=== PATIENT | male | born 1965 | race Two or more races ===

== ENCOUNTER 2018-08-02 19:18 | Emergency (ER) | payer MEDICAID, OTHER ==
[~2018-08-02] VITALS: Ht 162.6 cm; Wt 88.5 kg
--- NOTE | 2018-08-02 19:26 | NUR ---
ED Nurse Note: Patient walk in c/o pain and itching in rectum. Patient states he was diagnosed years ago with hemmorhoids, but the pain and itching has returned. Pain is 5/10, pt denies blood in stool.
[2018-08-02 19:31] VITALS: BP 157/91
[2018-08-02] MEDS ORDERED: BENTYL10 MG/1 ML IM (19:31)
[2018-08-02] MEDS ORDERED: BACTRIM DS TAB1 EAC1 ORAL (19:31)
[2018-08-02] MEDS ORDERED: METRONIDAZOLE500 MG ORAL (19:31)
[2018-08-02] MEDS ORDERED: TRIAMCINOLONE A15 G2 TP (19:31)
[2018-08-02] MEDS ORDERED: ANUSOL-HC30 GM RC (20:01)
[2018-08-02] MEDS ORDERED: COLACE100 MG ORAL (20:01)
[2018-08-02] MEDS ORDERED: NAPROXEN500 M2 ORAL (20:01)
[2018-08-02 20:05] VITALS: BP 157/91
--- NOTE | 2018-08-02 20:05 | NUR ---
ER DISCHARGE NOTE: Patient is cleared to be discharged per ERMD, pt is aox4, on room air, with stable vital signs. pt was given dc and prescription instructions, pt was able to verbalize understanding, pt id band removed. pt is able to ambulate with steady gait. pt took all belongings.
--- NOTE | 2018-08-02 21:17 | Emergency Room Report ---
History of Present Illness General Chief Complaint: Pain Source: Patient Present Illness HPI The patient is a 53-year-old male presenting for possible hemorrhoids. He states that he has had hemorrhoids in the past and this feels the same. he is experiencing pain 8 out of 10 sharp sensation which occurs with defecation. He does admit to constipation recently. He denies any other symptoms including melena, hematochezia, abdominal pain, fever, chills Allergies: Coded Allergies: HYDROXYUREA (Verified Allergy, Unknown, 08/02/18) LIDOCAINE (Verified Allergy, Unknown, 08/02/18) Patient History Past Medical History: see triage record Pertinent Family History: none Reviewed Nursing Documentation: PMH: Agreed; PSxH: Agreed Nursing Documentation-PMH Past Medical History: No History, Except For Hx Gastrointestinal Problems: Yes - hemmorhoids Review of Systems All Other Systems: negative except mentioned in HPI Physical Exam Vital Signs Date Time Temp Pulse Resp B/P (MAP) Pulse Ox O2 Delivery O2 Flow Rate FiO2 08/02/18 19:21 98.2 116 16 157/91 95 Sp02 EP Interpretation: reviewed, normal General Appearance: no apparent distress, alert, GCS 15, non-toxic Head: normocephalic, atraumatic Gastrointestinal: normal bowel sounds, non tender, soft, non-distended, no guarding, no rebound Rectal: normal rectal tone, hemorrhoids - external, tenderness Musculoskeletal: back normal, gait/station normal, normal range of motion, non- tender Neurologic: alert, oriented x3, responsive, motor strength/tone normal, sensory intact, speech normal Psychiatric: judgement/insight normal, memory normal, mood/affect normal, no suicidal/homicidal ideation Skin: normal color, no rash, warm/dry, well hydrated Medical Decision Making PA Attestation Dr. Carranza is my supervising physician. Patient management was discussed with my supervising physician Diagnostic Impression: Primary Impression: Hemorrhoid Qualified Codes: K64.9 - Unspecified hemorrhoids Additional Impression: Constipation Qualified Codes: K59.00 - Constipation, unspecified ER Course The patient is a 53-year-old male presenting for possible hemorrhoids. Differential diagnoses considered include but not limited to internal hemorrhoid , external hemorrhoid, cellulitis, abscess, rectal prolapse PE: Afebrile. NAD Abdomen is soft and nontender. Rectal exam shows external hemorrhoid which is tender with palpation. No blood. No fluctuance or erythema The patient is discharged home with prescription for naproxen, Colace, and Anusol. He is told to follow-up with his primary doctor. ER precautions given Last Vital Signs Date Time Temp Pulse Resp B/P (MAP) Pulse Ox O2 Delivery O2 Flow Rate FiO2 08/02/18 20:05 98.2 116 16 157/91 95 Status: improved Disposition: HOME, SELF-CARE Condition: Improved Scripts Hydrocortisone Hc 2.5% Cream (ANUSOL-HC 2.5% CREAM) Y Cr 1 APPLIC RC Q12HR, #30 GM Prov: JESSIKA ELLISON P.A. 08/02/18 Naproxen* (NAPROXEN*) 500 Mg Tablet 500 MG ORAL TWICE A WEEK, #60 TAB 0 Refills Prov: AYSHAANJESSIKA P.A. 08/02/18 Docusate Sodium* (COLACE*) 100 Mg Capsule 100 MG ORAL TWICE A DAY, #20 CAP Prov: JESSIKA ELLISON P.A. 08/02/18 Referrals: [facility],REFERR[facility] (PCP) Patient Instructions: Constipation, Adult, Hemorrhoids Additional Instructions: I discussed my findings with the patient. All questions and concerns have been answered. Treatment and medication compliance have been addressed. I advised the patient that they need to follow up with PMD in 3-5 days. Return to ED if symptoms worsen, new symptoms arise, or if needed for any reason. Patient verbalized understanding of discharge instructions. JESSIKA ELLISON Aug 02, 2018 21:17
== END 2018-08-02 20:05 | disposition home or self-care (01) ==
LOC: EMR 19:39
DX: K64.4 Residual hemorrhoidal skin tags (principal); K59.00 Constipation, unspecified; Z88.8 Allergy status to other drugs, medicaments and biological substances
CPT/HCPCS: 99283